=== PATIENT | female | born 1985 | race Caucasian/White ===

== ENCOUNTER 2019-06-30 13:43 | Outpatient (CLI) | payer BC, SELFPAY ==
--- NOTE | 2019-06-30 | ECHO_ITS ---
Patient Info Name: Edith Goetz Age: 33 years : 1985 Gender: Female Ht: 62 in Wt: 150 lbs BSA: 1.74 m2 HR: 64 bpm BP: 90 / 59 mmHg Heart Rhythm: Sinus Rhythm Technical Quality: Excellent Exam Date: 06/30/2019 2:14 PM Exam Location: [facility] Patient Status: Outpatient Admit Date: 06/30/2019 Staff Ordering Physician: Russ, Michelle FREEMAN Technology Coach: Karina Lyon RDCS Attending Provider: SwethaMichelle NP Exam Type: CA echo doppler color flow Study Info Indications R07.89 - Other chest pain Complete two-dimensional, color flow and Doppler transthoracic echocardiogram is performed. Summary 1. Left ventricular systolic function is normal, estimated at 55-60%. 2. There is no increased left ventricular wall thickness. 3. The left ventricular diastolic function is normal. 4. There is trace mitral valve regurgitation. 5. There is trace tricuspid valve regurgitation. 6. No pulmonary hypertension, estimated pulmonary arterial systolic pressure is 24 mmHg. Left Ventricle Left ventricular chamber dimension is normal. Left ventricular systolic function is normal, estimated at 55-60%. There is no increased left ventricular wall thickness. The left ventricular diastolic function is normal. Global longitudinal strain is normal at -21 %. Right Ventricle Right ventricular chamber dimension is normal. Right ventricular systolic function is normal. Left Atria Left atrial chamber dimension is normal. Right Atria Right atrial chamber dimension is normal. Aortic Valve The aortic valve is trileaflet. There is no aortic valve stenosis. There is no aortic valve regurgitation. Pulmonic Valve The pulmonic valve is normal. There is trace pulmonic regurgitation. Mitral Valve The mitral valve has normal leaflets. There is trace mitral valve regurgitation. Tricuspid Valve The tricuspid valve leaflets are normal. There is trace tricuspid valve regurgitation. No pulmonary hypertension, estimated pulmonary arterial systolic pressure is 24 mmHg. Pericardium/Pleural The pericardium appears normal. There is no pericardial effusion. Inferior Vena Cava Normal inferior vena cava with >50% collapse upon inspiration consistent with normal right atrial pressure, 5 mmHg. Aorta The aortic root size at the sinus of Valsalva is normal. Left Ventricular Outflow Tract Name Value Normal LVOT 2D LVOT Diameter 1.9 cm LVOT Doppler LVOT Peak Gradient 5 mmHg LVOT Mean Gradient 3 mmHg LVOT VTI 24 cm LVOT VTI/AV VTI Ratio 1.0 LVOT Stroke Volume 68 ml LVOT CO 4.5 l/min LVOT CI 2.6 l/min/m2 Pulmonic Valve Name Value Normal RVOT Doppler
== END 2019-06-30 13:44 | disposition home or self-care (01) ==
PROVIDERS: PCP Nurse Practitioner Adult Health; Visit Provider Nurse Practitioner Adult Health
DX: R07.89 Other chest pain (principal)
CPT/HCPCS: 93306

== ENCOUNTER 2021-03-21 11:53 | Outpatient (RCR) | payer BC, SELFPAY ==
[2021-03-21] MEDS: ACETAMINOPHEN 325 MG TABLET 650 MG PO (12:41)
[2021-03-21] MEDS: diphenhydrAMINE HCl CAP 25 MG CAPSULE PO (12:41)
[2021-03-21] MEDS: FAMOTIDINE 20 MG TABLET PO (12:41)
[2021-03-21 12:56] VITALS: BP 114/68; PULSE 80; RESP 20; TEMP 36.7; O2SAT 100
--- NOTE | 2021-03-21 13:01 | PC.NURSE ---
Patient received NextGxDX vaccine for COVID in Apr 2020, May 2020.
[2021-03-21] MEDS: diphenhydrAMINE HCl INJ 50 MG/ML VIAL IV PUSH (13:22)
[2021-03-21 13:25] VITALS: BP 111/78; PULSE 79; RESP 20; O2SAT 100
[2021-03-21] MEDS: HYDROCORTISONE SODIUM SUCCINATE 100 MG/2 ML VIAL IV PUSH (13:26)
--- NOTE | 2021-03-21 13:40 | PC.NURSE ---
At 1320, patient complained that medication was making her feel funny. Medication was immediately stopped with 8.6 mL administered. Patient then began flushing and experiencing shortness of breath; emergency medications were administered as charted in [facility]UL. Vital signs were obtained with BP 111/78, SPO2 100%, HR 79, RR 20. Patient's PCP was notified.
[2021-03-21 14:08] VITALS: BP 106/73; PULSE 70; RESP 18; TEMP 36.4; O2SAT 100
--- NOTE | 2021-03-22 11:31 | PC.NURSE ---
Called patient to follow-up regarding yesterday's infusion appointment. Patient states she is feeling great today and has had no side effects since discharge yesterday. Instructed to call back with any further questions.
== END 2021-03-21 15:47 | disposition home or self-care (01) ==
LOC: AMCINF 11:53
PROVIDERS: PCP Nurse Practitioner Adult Health; Referring Provider Nurse Practitioner Adult Health; Visit Provider Internal Medicine Hematology & Oncology
DX: Z23 Encounter for immunization (principal); U07.1 COVID-19
CPT/HCPCS: 96374; 96375; A9270; J1200; J1720; M0243; Q0243

== ENCOUNTER → 2021-05-29 11:48 | Outpatient (CLI) | payer BC, SELFPAY ==
--- NOTE | ~2021-05-29 | US_ITS ---
EXAMINATION: US right upper quadrant DATE: 05/29/2021 12:11 INDICATION: Right upper quadrant abdominal pain. TECHNIQUE: Multiple grayscale and Doppler ultrasound images of the abdomen were obtained. COMPARISON: CT abdomen and pelvis 05/10/2016 FINDINGS: Abdominal aorta is normal in caliber. The visualized portions of the head and body of the p ancreas are normal. The liver is normal without focal lesion. There is normal flow in main portal vei n. The gallbladder is normal in size. No gallstones or gallbladder wall thickening. There was no sono graphic Stephens sign. The common duct is normal and measures 3 mm. IMPRESSION: 1. Normal right upper quadrant ultrasound. Reviewed, dictated and finalized at location B. [employer]
== END ==
PROVIDERS: Visit Provider Nurse Practitioner Adult Health
DX: R10.11 Right upper quadrant pain (principal)
CPT/HCPCS: 76705